=== PATIENT | male | born 1940 | race Caucasian/White ===

== ENCOUNTER 2016-08-11 09:53 | Emergency (ER) | payer BC, MEDICARE ==
[~2016-08-11] VITALS: Ht 167.6 cm; Wt 85.0 kg
[~2016-08-11 09:53] MED LIST: CLIN150 PO; COUM5TAB PO
[2016-08-11 09:56] VITALS: BP 179/88; PULSE 78; RESP 16; TEMP 98.2; O2SAT 99
[2016-08-11] MEDS ORDERED: ALPR0.25 PO (10:42)
[2016-08-11] MEDS ORDERED: WARF-21 PO (10:42)
[2016-08-11] MEDS ORDERED: RAPA8CAP PO (10:42)
[2016-08-11] MEDS ORDERED: WARF-22 PO (10:42)
[2016-08-11 11:46] LABS: APTT (PATIENT) 34.8 SEC (24.3-30.1); INTERNATIONAL NORMALIZED RATIO 1.9 RATIO; PROTHROMBIN TIME - PATIENT 21.7 SEC (9.8-11.6)
[2016-08-11] MEDS ORDERED: CEPH500C PO (11:57)
[2016-08-11] MEDS ORDERED: BACT800T5 PO (11:57)
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
== END 2016-08-11 12:30 | disposition home or self-care (01) ==
LOC: NEPD 09:53
DX: L03.115 Cellulitis of right lower limb (principal); I10 Essential (primary) hypertension; Z79.01 Long term (current) use of anticoagulants
CPT/HCPCS: 85610; 85730; 99284

== ENCOUNTER 2016-12-12 15:10 | Emergency (ER) | payer BC ==
[~2016-12-12 15:10] MED LIST changes: +ALPR0.25 PO; +BACT800T5 PO; +CEPH500C PO; -CLIN150 PO; -COUM5TAB PO; +RAPA8CAP PO; +WARF-21 PO; +WARF-22 PO
[2016-12-12 15:13] VITALS: BP 194/94; PULSE 82; RESP 16; TEMP 97.4; O2SAT 98
--- NOTE | 2016-12-12 15:23 | PD ---
Physical Exam Time Seen by Provider: 15:21 Narrative 76 y/o male here for evaluation of closed head injury this AM. On coumadin, INR was 3.8. Mild forehead pain, denies global headache or any focal neurologic sx. Vital signs reviewed. Seen at triage desk. Awaiting bed placement. Data Data Last Documented VS Vital Signs Date Time Temp Pulse Resp B/P (MAP) Pulse Ox O2 Delivery O2 Flow Rate FiO2 12/12/16 15:13 97.4 82 16 194/94 (127) 98 Room Air [facility] Medical Record Reviewed: Yes Supervised Visit with MAURO: No Dano [place] Dec 12, 2016 15:23
[2016-12-12 16:16] LABS: INTERNATIONAL NORMALIZED RATIO 2.8 RATIO; PROTHROMBIN TIME - PATIENT 32.2 SEC (9.8-11.6)
--- NOTE | 2016-12-12 17:09 | RADRPT ---
EXAM DATE/TIME: 12/12/2016 16:51 [facility] COMPARISON: CT FACIAL BONES W CONTRAST, November 17, 2014, 23:39. INDICATIONS : Head pain due to fall. RADIATION DOSE: 56.35 CTDIvol (mGy) MEDICAL HISTORY : Hypertension. Cardiovascular disease Stomach cancer. SURGICAL HISTORY : Stomach sx, Hernia sx. ENCOUNTER: Initial ACUITY: 1 day PAIN SCALE: 0/10 LOCATION: Bilateral cranial TECHNIQUE: Multiple contiguous axial images were obtained of the head. Using automated exposure control and adj ustment of the mA and/or kV according to patient size, radiation dose was kept as low as reasonably a chievable to obtain optimal diagnostic quality images. DICOM format image data is available electro nically for review and comparison. FINDINGS: CEREBRUM: The ventricles are normal for age. No evidence of midline shift, mass lesion, hemorrhage or acute in farction. No extra-axial fluid collections are seen. POSTERIOR FOSSA: The cerebellum and brainstem are intact. The 4th ventricle is midline. The cerebellopontine angle i s unremarkable. EXTRACRANIAL: The visualized portion of the orbits is intact. SKULL: The calvaria is intact. No evidence of skull fracture. CONCLUSION: 1. No acute intracranial abnormality. Jose E Sanchez MD on December 12, 2016 at 17:07 Board Certified Radiologist. This report was verified electronically.
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
[2016-12-12 17:28] VITALS: BP 122/76; TEMP 97.8
== END 2016-12-12 17:30 | disposition home or self-care (01) ==
LOC: NEPD 15:10
DX: S09.90XA Unspecified injury of head, initial encounter (principal); S00.83XA Contusion of other part of head, initial encounter; F32.9 Major depressive disorder, single episode, unspecified; I10 Essential (primary) hypertension; E78.00 Pure hypercholesterolemia, unspecified; K21.9 Gastro-esophageal reflux disease without esophagitis; W22.8XXA Striking against or struck by other objects, initial encounter; Z79.01 Long term (current) use of anticoagulants; Z79.899 Other long term (current) drug therapy
CPT/HCPCS: 70450; 85610; 99284